=== PATIENT | male | born 2000 | race Caucasian/White ===

== ENCOUNTER 2021-11-07 22:47 | Emergency (ER) | payer SELFPAY ==
[~2021-11-07] VITALS: Ht 175.3 cm; Wt 61.3 kg
--- NOTE | 2021-11-07 23:19 | PHYS DOC ---
Past Medical History Past Medical History: No Pertinent History Past Surgical History: No Surgical History Smoking Status: Never Smoker Alcohol Use: None Drug Use: None General Adult EDM: Chief Complaint: OVERDOSE HPI: HPI: Patient is a 21 year old who was brought here by EMS from home after he was overdosed with narcotic. Patient was at a libertarian at home to celebrated brother birthday. Patient said he was given some Percocet to take, he become unresponsive, his friend called EMS, they gave him 1.5 mg Narcan, patient woke up. Patient was then transferred here for evaluation. By the time he got here, patient was awake and alert, oriented, patient denies suicidal ideation denies homicidal ideation. Patient stated that he has Suboxone at home that he can take. Patient felt much better now, he did not want to be evaluated. Review of Systems: Review of Systems: Constitutional: Denies fever or chills. [] Eyes: Denies change in visual acuity. [] HENT: Denies nasal congestion or sore throat. [] Respiratory: Denies cough or shortness of breath. [] Cardiovascular: Denies chest pain or edema. [] GI: Denies abdominal pain, nausea, vomiting, bloody stools or diarrhea. [] : Denies dysuria. [] Musculoskeletal: Denies back pain or joint pain. [] Integument: Denies rash. [] Neurologic: Denies headache, focal weakness or sensory changes. [] Endocrine: Denies polyuria or polydipsia. [] Lymphatic: Denies swollen glands. [] Psychiatric: Denies depression or anxiety. [] Heart Score: C/O Chest Pain: N/A Risk Factors: Risk Factors: DM, Current or recent (<one month) smoker, HTN, HLP, family history of CAD, obesity. Risk Scores: Score 0 - 3: 2.5% MACE over next 6 weeks - Discharge Home Score 4 - 6: 20.3% MACE over next 6 weeks - Admit for Clinical Observation Score 7 - 10: 72.7% MACE over next 6 weeks - Early Invasive Strategies Allergies: Allergies: Allergies Coded Allergies Type Severity Reaction Last Updated Verified kiwi Allergy Unknown Anaphylaxis 11/07/21 Yes Physical Exam: PE: Constitutional: Well developed, well nourished, no acute distress, non-toxic appearance. [] HENT: Normocephalic, atraumatic, bilateral external ears normal, oropharynx moist, no oral exudates, nose normal. [] Eyes: PERRLA, EOMI, conjunctiva normal, no discharge. [] Neck: Normal range of motion, no tenderness, supple, no stridor. [] Cardiovascular:Heart rate regular rhythm, no murmur [] Lungs & Thorax: Bilateral breath sounds clear to auscultation [] Abdomen: Bowel sounds normal, soft, no tenderness, no masses, no pulsatile masses. [] Skin: Warm, dry, no erythema, no rash. [] Back: No tenderness, no CVA tenderness. [] Extremities: No tenderness, no cyanosis, no clubbing, ROM intact, no edema. [] Neurologic: Alert and oriented X 3, normal motor function, normal sensory function, no focal deficits noted. [] Psychologic: Affect normal, judgement normal, mood normal. [] EKG: EKG: [] Radiology/Procedures: Radiology/Procedures: [] Course & Med Decision Making: Course & Med Decision Making Pertinent Labs and Imaging studies reviewed. (See chart for details) Patient is a 21-year-old male who was brought here by EMS from home after he accidentally overdosed on fentanyl. Patient was given Narcan at home. Patient is awake alert oriented now, patient denies suicidal ideation. Patient said he has Suboxone at home, he will take it at home when he get home. Patient did not want to stay here for observation. Patient's father is here, he will take the patient home, patient will stay with his father tonight. Garima Disclaimer: Garima Disclaimer: This electronic medical record was generated, in whole or in part, using a voice recognition dictation system. Departure Departure Impression: Primary Impression: Accidental drug overdose Disposition: HOME / SELF CARE / HOMELESS Condition: IMPROVED Referrals: BETTY LUGO (PCP) Follow up with your doctor on Tuesday. Patient Instructions: Narcotic Overdose Additional Instructions: Thank you for visiting our Emergency Department. We appreciate you trusting us with your care. If any additional problems come up don't hesitate to return to visit us. Please follow up with your primary care provider so they can plan additional care if needed and know about the problem that you had. If symptoms worsen come back to the Emergency Department. Any concerning symptoms that start such as chest pain, shortness of air, weakness or numbness on one side of the body, running high fevers or any other concerning symptoms return to the ER. GINNY RIOS DO Nov 07, 2021 23:19
[2021-11-07 23:20] VITALS: BP 112/73
[2021-11-07] MEDS ORDERED: IV NORMAL SALINE 1000ML BAG 1,000 ML IV ONE (23:30)
== END 2021-11-07 23:30 | disposition home or self-care (01) ==
LOC: ER 22:47
DX: T40.601A Poisoning by unspecified narcotics, accidental (unintentional), initial encounter (principal); Z91.018 Allergy to other foods; Y92.89 Other specified places as the place of occurrence of the external cause
CPT/HCPCS: 99283

== ENCOUNTER 2021-11-22 13:00 | Emergency (ER) | payer SELFPAY ==
[~2021-11-22] VITALS: Ht 175.3 cm; Wt 61.0 kg
[2021-11-22] MEDS ORDERED: NALOXONE 2 MG/2 ML DISP.SYRIN. ONE (13:08)
[2021-11-22] MEDS ORDERED: IV NORMAL SALINE 1000ML BAG 1,000 ML IV ONE ×2 (13:15→16:00)
[2021-11-22] MEDS ORDERED: NALOXONE 0.4 MG/ML VIAL. IV ONE ×2 (13:15→13:25)
[2021-11-22 13:22] LABS: BASO % 0 % (0-3); EOS # 0.3 x10^3/uL (0.0-0.7); EOS % 3 % (0-3); HEMATOCRIT 42.6 % (39.0-53.0); HEMOGLOBIN 14.6 g/dL (13.0-17.5); LYMPH # 3.2 x10^3/uL (1.0-4.8); LYMPH % 31 % (24-48); MEAN CORPUSCULAR HEMOGLOBIN 31 pg (25-35); MEAN CORPUSCULAR HGB CONC 34 g/dL (31-37); MEAN CORPUSCULAR VOLUME 91 fL (79-100); MONO # 0.4 x10^3/uL (0.0-1.1); MONO % 4 % (0-9); NEUT # 6.6 x10^3/uL (1.8-7.7); NEUT % 62 % (31-73); PLATELET COUNT 215 x10^3/uL (140-400); RED BLOOD COUNT 4.67 x10^6/uL (4.30-5.70); RED CELL DISTRIBUTION WIDTH 13.8 % (11.5-14.5); WHITE BLOOD COUNT 10.6 x10^3/uL (4.0-11.0)
--- NOTE | 2021-11-22 13:27 | RAD ---
EXAM: XR CHEST 1V 11/22/2021 1:11 PM CLINICAL INDICATION: Decreased oxygen saturation COMPARISON: None TECHNIQUE: AP upright view the chest FINDINGS: The heart is normal in size. Lungs are well-expanded. There are left upper lobe opacities suspicious for pneumonia. No pleural effusion or pneumothorax. IMPRESSION: Left upper lobe pneumonia. Electronically signed by: Giuliana Escalera MD (11/22/2021 1:25 PM) [id number]
[2021-11-22] MEDS ORDERED: NALOXONE 2 MG/2 ML DISP.SYRIN. IV ONE (13:30)
[2021-11-22] MEDS ORDERED: ONDANSETRON PF 4 MG/2 ML VIAL. IVP ONE (13:30)
[2021-11-22 13:31] LABS: CALCIUM 8.4 mg/dL (8.5-10.1); CREATININE 1.2 mg/dL (0.7-1.3); GFR 76.4; POTASSIUM 3.7 mmol/L (3.5-5.1)
[2021-11-22 13:37] LABS: ALBUMIN 3.5 g/dL (3.4-5.0); TOTAL BILIRUBIN 0.4 mg/dL (0.2-1.0); TOTAL PROTEIN 7.1 g/dL (6.4-8.2)
[2021-11-22 13:43] LABS: ACETAMIN < 2 mcg/ml (10-30); ETHANOL < 10 mg/dL (0-10)
[2021-11-22 14:08] LABS: BARBITURATES NEG (NEG); BENZODIAZEPINES POS (NEG); CANNABINOIDS POS (NEG); COCAINE NEG (NEG); METHADONE NEG (NEG); OPIATES NEG (NEG); PHENCYCLIDINE NEG (NEG)
[2021-11-22 14:11] LABS: AMPHETAMINE/METHAMPHETAMINE NEG (NEG)
[2021-11-22] MEDS ORDERED: AZITHROMYCIN 250 MG TABLET. PO ONE (15:00)
--- NOTE | 2021-11-22 15:18 | PHYS DOC ---
Past Medical History Past Medical History: No Pertinent History Additional Past Medical Histor: DRUG ABUSE - OVERDOSE Past Surgical History: No Surgical History Smoking Status: Current Every Day Smoker Alcohol Use: Heavy Additional Information: PT REPORTS HE DRINKS 1/2 GALLON DAILY, OF WHATEVER. PT REPORTS LAST DRINK 2 DAYS AGO (11/20/21) Drug Use: None Social History Narrative: XANAX, PERCOCET. General Adult EDM: Chief Complaint: OVERDOSE HPI: HPI: Patient is a 21 year old male with history of opiate abuse who presents with altered mentation. EMS reported that patient was found unconscious, cyanotic, apneic after taking 1 tablet of Percocet. Patient is not opiate janneth. Patient has supply of Suboxone at home. Patient presented at this emergency department 2 weeks ago with opiate overdose, regained consciousness with Narcan. Patient left AMA 2 weeks ago, he did not want evaluation. Patient was also picked up by EMS yesterday for opiate overdose. Patient declined evaluation and transportation after administration of Narcan. Patient presents today with opiate overdose. Patient states that he only took 1 tablet of Percocet, different dealer. On presentation to the emergency department he was awake and sleepy, altered mental status, saturating well on 2 L of nasal cannula. His mental status began to decrease and he was administered 2 mg of Narcan x2, patient required nonrebreather of oxygen. Patient became alert and oriented after painful stimuli. Review of Systems: Review of Systems: Constitutional: Denies fever or chills. [] Eyes: Denies change in visual acuity. [] HENT: Denies nasal congestion or sore throat. [] Respiratory: Positive cough, no shortness of breath. [] Cardiovascular: Denies chest pain or edema. [] GI: Denies abdominal pain, nausea, vomiting, bloody stools or diarrhea. [] : Denies dysuria. [] Musculoskeletal: Denies back pain or joint pain. [] Integument: Denies rash. [] Neurologic: Denies headache, focal weakness or sensory changes. [] Endocrine: Denies polyuria or polydipsia. [] Lymphatic: Denies swollen glands. [] Psychiatric: Denies depression or anxiety. [] Heart Score: C/O Chest Pain: No Risk Factors: Risk Factors: DM, Current or recent (<one month) smoker, HTN, HLP, family history of CAD, obesity. Risk Scores: Score 0 - 3: 2.5% MACE over next 6 weeks - Discharge Home Score 4 - 6: 20.3% MACE over next 6 weeks - Admit for Clinical Observation Score 7 - 10: 72.7% MACE over next 6 weeks - Early Invasive Strategies Current Medications: Current Medications Medications (Trade) Dose Ordered Sig/Jessica Start Time Stop Time Status Last Admin Dose Admin Azithromycin (Zithromax) 500 mg 1X ONCE 11/22/21 15:00 11/22/21 15:01 Naloxone HCl (NARCAN 2mg SYRINGE) 2 mg 1X ONCE 11/22/21 13:30 11/22/21 13:31 DC 11/22/21 13:44 2 MG Naloxone HCl (Narcan) 0.4 mg 1X ONCE 11/22/21 13:25 11/22/21 13:52 DC 11/22/21 13:49 0.4 MG Ondansetron HCl (Zofran) 4 mg 1X ONCE 11/22/21 13:30 11/22/21 13:31 DC Sodium Chloride 1,000 ml @ 1,000 mls/hr 1X ONCE 11/22/21 13:15 11/22/21 14:14 DC 11/22/21 13:43 1,000 MLS/HR Allergies: Allergies: Allergies Coded Allergies Type Severity Reaction Last Updated Verified kiwi Allergy Unknown Anaphylaxis 11/07/21 Yes Physical Exam: PE: Exam at presentation: GENERAL: The patient appears sleepy, alert. The patient is alert and oriented x1. HEAD: Head is normocephalic and atraumatic. EYES: Extraocular muscles are intact. Pupils are contracted. Sclera non-icteric. Conjunctivae non-injected. EARS/NOSE/MOUTH/THROAT: External inspection of the ears and nose reveals a normal overall appearance without lesions or scars. NECK: Supple. Trachea Midline. No lymphadenopathy or thyromegaly. LUNGS: Clear to auscultation. No rhonchi. No rales. No crackles. No wheezes. No retractions or increased work of breathing. Tachypneic HEART: Tachycardic and rhythm without murmurs, rubs, gallops. Normal S1/S2. Capillary refill less than 2 seconds. ABDOMEN: Soft, nontender, and nondistended. Positive bowel sounds. No hepatosplenomegaly, no masses, no hernias noted. EXTREMITIES: Without any cyanosis, clubbing, rash, lesions or edema. NEUROLOGIC: CN II-XII grossly intact PSYCHIATRIC: Normal affect, Normal mood. SKIN: Warm and dry. Exam after narcan administration in the ER Constitutional: Well developed, well nourished, no acute distress, non-toxic appearance. [] HENT: Normocephalic, atraumatic, bilateral external ears normal, oropharynx moist, no oral exudates, nose normal. [] Eyes: PERRLA, EOMI, conjunctiva normal, no discharge. [] Neck: Normal range of motion, no tenderness, supple, no stridor. [] Cardiovascular:tachycardic 100bpm, no murmur [] Lungs & Thorax: Bilateral breath sounds clear to auscultation [] Abdomen: Bowel sounds normal, soft, no tenderness, no masses, no pulsatile masses. [] Skin: Warm, dry, no erythema, no rash. [] Back: No tenderness, no CVA tenderness. [] Extremities: No tenderness, no cyanosis, no clubbing, ROM intact, no edema. [] Neurologic: Alert and oriented X 3, normal motor function, normal sensory function, no focal deficits noted. [] Psychologic: Affect normal, judgement normal, mood normal. [] Current Patient Data: Labs: Laboratory Tests Test 11/22/21 13:08 11/22/21 13:40 White Blood Count 10.6 x10^3/uL (4.0-11.0) Red Blood Count 4.67 x10^6/uL (4.30-5.70) Hemoglobin 14.6 g/dL (13.0-17.5) Hematocrit 42.6 % (39.0-53.0) Mean Corpuscular Volume 91 fL (79-100) Mean Corpuscular Hemoglobin 31 pg (25-35) Mean Corpuscular Hemoglobin Concent 34 g/dL (31-37) Red Cell Distribution Width 13.8 % (11.5-14.5) Platelet Count 215 x10^3/uL (140-400) Neutrophils (%) (Auto) 62 % (31-73) Lymphocytes (%) (Auto) 31 % (24-48) Monocytes (%) (Auto) 4 % (0-9) Eosinophils (%) (Auto) 3 % (0-3) Basophils (%) (Auto) 0 % (0-3) Neutrophils # (Auto) 6.6 x10^3/uL (1.8-7.7) Lymphocytes # (Auto) 3.2 x10^3/uL (1.0-4.8) Monocytes # (Auto) 0.4 x10^3/uL (0.0-1.1) Eosinophils # (Auto) 0.3 x10^3/uL (0.0-0.7) Basophils # (Auto) 0.0 x10^3/uL (0.0-0.2) Sodium Level 140 mmol/L (136-145) Potassium Level 3.7 mmol/L (3.5-5.1) Chloride Level 99 mmol/L (98-107) Carbon Dioxide Level 29 mmol/L (21-32) Anion Gap 12 (6-14) Blood Urea Nitrogen 13 mg/dL (8-26) Creatinine 1.2 mg/dL (0.7-1.3) Estimated GFR (Cockcroft-Gault) 76.4 BUN/Creatinine Ratio 11 (6-20) Glucose Level 195 mg/dL (70-99) H Calcium Level 8.4 mg/dL (8.5-10.1) L Total Bilirubin 0.4 mg/dL (0.2-1.0) Aspartate Amino Transferase (AST) 150 U/L (15-37) H Alanine Aminotransferase (ALT) 101 U/L (16-63) H Alkaline Phosphatase 100 U/L (46-116) Total Protein 7.1 g/dL (6.4-8.2) Albumin 3.5 g/dL (3.4-5.0) Albumin/Globulin Ratio 1.0 (1.0-1.7) Procalcitonin < 0.10 ng/mL (0.00-0.10) Acetaminophen Level < 2 mcg/ml (10-30) L Acetaminophen Last Dose Date Acetaminophen Last Dose Time Ethyl Alcohol Level < 10 mg/dL (0-10) Urine Opiates Screen Neg (NEG) Urine Methadone Screen Neg (NEG) Urine Barbiturates Neg (NEG) Urine Phencyclidine Screen Neg (NEG) Urine Amphetamine/Methamphetamine Neg (NEG) Urine Benzodiazepines Screen Pos (NEG) Urine Cocaine Screen Neg (NEG) Urine Cannabinoids Screen Pos (NEG) Urine Ethyl Alcohol Neg (NEG) Laboratory Tests 11/22/21 13:08 Laboratory Tests 11/22/21 13:08 Vital Signs: Vital Signs Date Time Temp Pulse Resp B/P (MAP) Pulse Ox O2 Delivery O2 Flow Rate FiO2 11/22/21 13:48 100 18 109/60 (76) 100 NonRebreather Mask 15.0 11/22/21 13:00 97.6 97.6 EKG: EKG: Sinus rhythm [] Radiology/Procedures: Radiology/Procedures: Chest x-ray with left upper lobe pneumonia [] Impression: Opiate overdose, aspiration pneumonia Course & Med Decision Making: Course & Med Decision Making Pertinent Labs and Imaging studies reviewed. (See chart for details) 21-year-old male, seen and evaluated by myself. Patient hypoxic in emergency department upon presentation, recovered after 4 mg of IV Narcan given in the emergency department as well as painful stimuli. Patient requiring facemask but was able to wean down to 4 L nasal cannula. Patient tachycardic and with pneumonia on left upper lobe, likely aspiration pneumonia from recent overdose. Patient states he was vomiting yesterday during his overdose which he received Narcan for. Blood pressure good however tachycardic with a source. Patient repeatedly stating that he does not want to stay in the emergency department or in the hospital. Patient left AMA 2 weeks ago as well. Patient stating that he does not want to pay for a hospitalization. Patient encouraged to stay in the emergency department for full evaluation. 1700 :patient unable to wean off of oxygen. Likely due to aspiration pneumonia. Explained this to the patient, explained that this would be dangerous for him to be discharged. Patient states that he would like to leave to take care of schoolwork as well as legal issues. Patient unable to be convinced. Patient tachycardic, tachypneic, hypoxic at the time of discharge. I explained to the patient that he may decompensate, get worse, become febrile, become more septic and not treat his pneumonia. Patient repeatedly stated that he will go AGAINST MEDICAL ADVICE. Patient signed AMA paperwork, repeatedly unable to be convinced to act in his best interest. Patient given prescription for cefdinir and azithromycin to take at home. Patient encouraged to not take opiates while at home. Patient guarded condition at discharge. Patient alert and oriented x4. Patient has decision-making capacity. Dragon Disclaimer: Garima Disclaimer: This electronic medical record was generated, in whole or in part, using a voice recognition dictation system. Departure Departure Referrals: UNKNOWN PCP NAME (PCP) Scripts Cefdinir (CEFDINIR) 300 Mg Capsule 1 CAP PO BID for 10 Days, #20 CAP Prov: TRACY AYOUB MD 11/22/21 Azithromycin (AZITHROMYCIN TABLET) 250 Mg Tablet 250 MG PO DAILY for ANTI-BIOTIC for 4 Days, #4 TAB 0 Refills Prov: TRACY AYOUB MD 11/22/21 TRACY AYOUB MD November 22, 2021 15:18
[2021-11-22] MEDS ORDERED: cefTRIAXone IV Push 1 GM VIAL. IVP ONE (15:30)
[2021-11-22 16:48] VITALS: BP 107/63
[2021-11-22] MEDS ORDERED: CEFD300C PO ×2 (16:54→17:02)
[2021-11-22] MEDS ORDERED: AZIT250T6 PO ×2 (16:54→17:02)
--- NOTE | 2021-11-26 15:11 | EKG ---
[facility] [address] [place] [address] Test Date: 2021-11-22 Test Time: 13:46:42 Pat Name: GEORGETTE ALMONTE Department: Room: Gender: M [employer] Rodman: [id number] : 2000 Requested By: TRACY AYOUB Order Number: [id number] Reading MD: Gregorio Roblero MD Measurements Intervals [place] Rate: 99 P: 68 [place]: 110 QRS: 83 QRSD: 84 T: 61 QT: 342 QTc: 444 Interpretive Statements SINUS RHYTHM Electronically Signed On 11-30-2021 9:50:20 CDT by Gregorio Roblero MD
== END 2021-11-22 16:55 | disposition left against medical advice (07) ==
LOC: ER 13:00
DX: T40.601A Poisoning by unspecified narcotics, accidental (unintentional), initial encounter (principal); J18.9 Pneumonia, unspecified organism; F17.200 Nicotine dependence, unspecified, uncomplicated; F10.20 Alcohol dependence, uncomplicated; Z91.018 Allergy to other foods; Y90.9 Presence of alcohol in blood, level not specified; Y92.89 Other specified places as the place of occurrence of the external cause
CPT/HCPCS: 36415; 71045; 80053; 80307; 80329; 84145; 85025; 87040; 93005; 96374; 96375; 96376; 99285; G0480; J0696; J2310; J7030; 96361